=== PATIENT | male | born 1950 | race Caucasian/White ===

== ENCOUNTER → 2021-06-23 10:13 | Outpatient (CLI) | payer MEDICARE, OTHER, SELFPAY ==
--- NOTE | 2021-06-23 10:29 | MRI_ITS ---
STUDY: MRI BRAIN WITH AND WITHOUT CONTRAST (ATTENTION INTERNAL AUDITORY CANALS - I.A.C.''s) REASON FOR EXAM: Male, 70 years old. DIZZINESS, FRONTAL HEADACHES TECHNIQUE: Standardized multiplanar fat and water weighted pulse sequences were obtained. IV 19cc dotarem was administered for the contrast portion of the examination. COMPARISON: None. FINDINGS: Normal bilateral temporal bones. Normal bilateral internal auditory canals. There is no demonstrated intracanalicular or cisternal vestibular schwannoma (acoustic neuroma). There is no enhancement of the bilateral VIIth or VIIIth cranial nerves. Normal bilateral cochlea, vestibules and semicircular canals. Normal size of the ventricles and extra-axial spaces for the patient''s age. Normal white matter tracts of the supratentorial brain. There is no evidence for recent intracranial ischemia or other cause of cytotoxic edema on diffusion weighted imaging (DWI). Normal bilateral basal ganglia. Normal thalami. Normal flow voids within the major intracranial circulation suggesting patency by spin echo criteria. Normal venous enhancement. There is no enhancing intra-axial or extra-axial abnormality. There is no extra-axial fluid accumulation. There is enlargement of the pituitary gland measuring 10 mm with some extension into the suprasellar cistern but no effacement of the optic chiasm. The gland demonstrates homogeneous contrast enhancement without obvious nonenhancing adenoma. Normal tectal plate and pineal gland. Normal midbrain, narda and medulla. Normal cerebellum. Normal basal cisterns. No demonstrated orbital abnormality, within the constraints of a routine brain study. Normal visualized paranasal sinuses. Normal calvarium and skull base. Normal visualized soft tissue structures. Normal visualized upper cervical spine. MRI/Brain W/WO Contrast IMPRESSION: 1. No MR evidence of vestibular schwannoma (acoustic neuroma). 2. Enlarged pituitary gland. Electronically Signed: Barry Cardoso MD at 14:39 EST Tel , Service support ,
[2021-06-23 10:50] LABS: CREATININE FINGERSTICK 0.8 mg/dL (0.70-1.30); EGFR FINGERSTICK > 60.0000 mL/min (>60)
== END ==
PROVIDERS: PCP Family Medicine; Visit Provider Otolaryngology
DX: R42 Dizziness and giddiness (principal); H91.90 Unspecified hearing loss, unspecified ear
CPT/HCPCS: 70553; A9575

== ENCOUNTER 2021-09-29 13:14 | Outpatient (CLI) | payer MEDICARE, OTHER, SELFPAY ==
[2021-09-29 14:53] LABS: Absolute Lymphocyte Count 0.88 X10^3/uL (0.83-4.51); Absolute Neutrophil Count 8.7 X10^3/uL (2.0-7.7); Basophil# 0.07 X10^3/uL; Basophil% 0.7 % (0-1); Eosinophil# 0.07 X10^3/uL; Eosinophils% 0.7 % (0-5); Hematocrit 48.3 % (40-54); Hemoglobin 16.3 g/dL (13.0-16.5); Lymphocyte # 0.88 X10^3/ul (0.83-4.51); Lymphocyte % 8.5 % (19-41); Mean Corp Hgb Conc 33.7 g/dL (32-36); Mean Corpuscular Hgb 31.2 pg (27.0-32.0); Mean Corpuscular Volume 92.5 fL (80-94); Mean Platelet Vol. 9.3 fl (6.2-12.0); Monocyte# 0.67 X10^3/uL; Monocyte% 6.4 % (0-10); NRBC Flagged by Analyzer 0 % (0-5); Neutrophil # 8.66 X10^3/uL (2.7-7.7); Neutrophil % 83.2 % (47-70); Platelet Count 254 K/mm3 (150-450); RBC Distribution Width CV 13.2 % (11.6-14.6); RBC Distribution Width SD 44.5 fl (35.1-43.9); Red Blood Count 5.22 M/mm3 (4.6-6.2); White Blood Count 10.4 K/mm3 (4.4-11.0)
[2021-09-29 15:53] LABS: ALB/GLOB Ratio 1.1 RATIO (0.9-2.4); AST(SGOT) 19 U/L (15-37); Alanine Aminotransfer ALT/SGPT 40 U/L (16-61); Albumin, Serum 4.1 g/dL (3.2-5.0); Alkaline Phosphatase 90 U/L (45-117); Anion Gap 6 (5-15); BUN 15 mg/dL (7-18); BUN/Creat Ratio 19.6 RATIO (10-20); Chloride 105 mmol/L (98-107); Creatinine, Serum 0.76 mg/dL (0.70-1.30); EST Glomerular Filtration Rate 107 mL/min (>60); Est Glom Filt Rate - Afr Amer 129 mL/min (>60); Globulin 3.6 g/dL (2.2-4.2); Glucose 91 mg/dL (74-106); PSA,Total - Annual Screen 1.88 ng/mL (0.00-4.00); Potassium 3.8 mmol/L (3.5-5.1); Protein, Total 7.7 g/dL (6.4-8.2); Sodium Level 137 mmol/L (136-145); Thyroid Stim Hormone (TSH) 5.23 uIU/mL (0.358-3.74)
[2021-09-30 11:54] LABS: Hepatitis C Antibody Non-Reactive (Nonreactive)
== END 2021-09-29 23:59 | disposition home or self-care (01) ==
LOC: LAB 13:18
PROVIDERS: PCP Family Medicine Geriatric Medicine; Referring Provider Family Medicine Geriatric Medicine; Visit Provider Family Medicine Geriatric Medicine
DX: R53.83 Other fatigue (principal); Z12.5 Encounter for screening for malignant neoplasm of prostate; Z13.89 Encounter for screening for other disorder
CPT/HCPCS: 36415; 80053; 84153; 84443; 85025; 86803; G0103

== ENCOUNTER → 2022-05-02 | Outpatient (CLI) | payer MEDICARE, OTHER, SELFPAY ==
--- NOTE | 2022-05-02 09:45 | ART_ITS ---
Reason For Study: Claudication Procedure A bilateral lower extremity continuous wave Doppler with analog waveform analysis and ankle brachial indexes. Left Segmental Pressures Left brachial= 157mmHg. Left posterior tibial artery = 176mmHg. Left dorsalis pedis artery = 187mmHg. Left digit = 101 mmHg. Right Segmental Pressures Right brachial= 144mmHg. Right posterior tibial artery = 188mmHg. Right dorsalis pedis artery = 175mmHg. Right digit = 109 mmHg. Indices The right ankle brachial index by the posterior tibial artery is 1.20. The right ankle brachial index by the dorsalis pedis is 1.11. The right digital-brachial index is 0.69. The left ankle brachial index by the posterior tibial artery is 1.12. The left ankle brachial index by the dorsalis pedis is 1.19. The left digital-brachial index is 0.64. VL/Ankle Brachial Index Interpretation Summary Triphasic Doppler waveforms are noted at ankle level bilaterally. Pulse-volume recordings appear diminished at digital level bilaterally. Resting ankle-brachial indices are nor mal bilaterally. Digital-brachial indices are mildly diminished bilaterally. Arterial flow appears normal at ankle level bilaterally. There is evidence of m ild arterial occlusive disease at digital level bilaterally. Ordering Physician: Damián Wei Chi Referring Physician: DAMIÁN WEI CHI, MD Performed By: Laurie Vasquez RDCS/RVT
== END | disposition home or self-care (01) ==
LOC: CVS 09:44
PROVIDERS: PCP Family Medicine Geriatric Medicine; Referring Provider Family Medicine Geriatric Medicine; Visit Provider Family Medicine Geriatric Medicine
DX: I73.9 Peripheral vascular disease, unspecified (principal)
CPT/HCPCS: 93922

== ENCOUNTER → 2022-06-02 | Outpatient (CLI) | payer MEDICARE, OTHER, SELFPAY ==
[2022-06-02 17:59] LABS: Absolute Lymphocyte Count 1.01 X10^3/uL (0.83-4.51); Absolute Neutrophil Count 5.6 X10^3/uL (2.0-7.7); Basophil# 0.07 X10^3/uL; Basophil% 0.9 % (0-1); Eosinophils% 1.4 % (0-5); Hematocrit 45.3 % (40-54); Hemoglobin 15.1 g/dL (13.0-16.5); Lymphocyte # 1.01 X10^3/ul (0.83-4.51); Lymphocyte % 13.6 % (19-41); Mean Corp Hgb Conc 33.3 g/dL (32-36); Mean Corpuscular Hgb 30.3 pg (27.0-32.0); Mean Corpuscular Volume 90.8 fL (80-94); Mean Platelet Vol. 9.6 fl (6.2-12.0); Monocyte# 0.63 X10^3/uL; Monocyte% 8.5 % (0-10); NRBC Flagged by Analyzer 0 % (0-5); Neutrophil # 5.56 X10^3/uL (2.7-7.7); Neutrophil % 75.2 % (47-70); Platelet Count 269 K/mm3 (150-450); RBC Distribution Width CV 12.9 % (11.6-14.6); RBC Distribution Width SD 42.1 fl (35.1-43.9); Red Blood Count 4.99 M/mm3 (4.6-6.2); White Blood Count 7.4 K/mm3 (4.4-11.0)
[2022-06-02 18:37] LABS: ALB/GLOB Ratio 1.1 RATIO (0.9-2.4); AST(SGOT) 18 U/L (15-37); Alanine Aminotransfer ALT/SGPT 36 U/L (16-61); Alkaline Phosphatase 127 U/L (45-117); Anion Gap 7 (5-15); BUN 18 mg/dL (7-18); BUN/Creat Ratio 21.8 RATIO (10-20); Calcium,Total 8.7 mg/dL (8.5-10.1); Chloride 103 mmol/L (98-107); Creatinine, Serum 0.82 mg/dL (0.70-1.30); EST Glomerular Filtration Rate 98 mL/min (>60); Est Glom Filt Rate - Afr Amer 119 mL/min (>60); Globulin 3.5 g/dL (2.2-4.2); Glucose 68 mg/dL (74-106); Potassium 3.7 mmol/L (3.5-5.1); Protein, Total 7.5 g/dL (6.4-8.2); Sodium Level 136 mmol/L (136-145); Thyroid Stim Hormone (TSH) 1.79 uIU/mL (0.358-3.74)
[2022-06-02 18:38] LABS: Vitamin D,25 Hydroxy 29.4 ng/mL
== END | disposition home or self-care (01) ==
LOC: POLAB3 09:22
PROVIDERS: PCP Family Medicine Geriatric Medicine; Visit Provider Family Medicine Geriatric Medicine
DX: I10 Essential (primary) hypertension (principal); E55.9 Vitamin D deficiency, unspecified
CPT/HCPCS: 36415; 80053; 82306; 84443; 85025

== ENCOUNTER → 2022-10-04 | Outpatient (CLI) | payer MEDICARE, OTHER, SELFPAY ==
[2022-10-04 17:29] LABS: Absolute Lymphocyte Count 1.29 X10^3/uL (0.83-4.51); Absolute Neutrophil Count 6.7 X10^3/uL (2.0-7.7); Basophil# 0.07 X10^3/uL; Basophil% 0.8 % (0-1); Eosinophil# 0.17 X10^3/uL; Eosinophils% 1.9 % (0-5); Hematocrit 43.8 % (40-54); Hemoglobin 14.7 g/dL (13.0-16.5); Lymphocyte # 1.29 X10^3/ul (0.83-4.51); Lymphocyte % 14.3 % (19-41); Mean Corp Hgb Conc 33.6 g/dL (32-36); Mean Corpuscular Hgb 29.6 pg (27.0-32.0); Mean Corpuscular Volume 88.3 fL (80-94); Mean Platelet Vol. 10.1 fl (6.2-12.0); Monocyte# 0.71 X10^3/uL; Monocyte% 7.9 % (0-10); NRBC Flagged by Analyzer 0 % (0-5); Neutrophil # 6.74 X10^3/uL (2.7-7.7); Neutrophil % 74.5 % (47-70); Platelet Count 233 K/mm3 (150-450); RBC Distribution Width CV 13.4 % (11.6-14.6); RBC Distribution Width SD 43.1 fl (35.1-43.9); Red Blood Count 4.96 M/mm3 (4.6-6.2)
[2022-10-04 17:49] LABS: Vitamin D,25 Hydroxy 17.6 ng/mL
[2022-10-04 18:02] LABS: ALB/GLOB Ratio 1.1 RATIO (0.9-2.4); AST(SGOT) 18 U/L (15-37); Alanine Aminotransfer ALT/SGPT 37 U/L (16-61); Albumin, Serum 3.8 g/dL (3.2-5.0); Alkaline Phosphatase 137 U/L (45-117); Anion Gap 6 (5-15); BUN 16 mg/dL (7-18); BUN/Creat Ratio 17.4 RATIO (10-20); Calcium,Total 8.7 mg/dL (8.5-10.1); Chloride 101 mmol/L (98-107); Creatinine, Serum 0.92 mg/dL (0.70-1.30); EST Glomerular Filtration Rate 86 mL/min (>60); Est Glom Filt Rate - Afr Amer 104 mL/min (>60); Globulin 3.5 g/dL (2.2-4.2); Glucose 99 mg/dL (74-106); Potassium 3.7 mmol/L (3.5-5.1); Protein, Total 7.3 g/dL (6.4-8.2); Sodium Level 136 mmol/L (136-145); Thyroid Stim Hormone (TSH) 1.95 uIU/mL (0.358-3.74)
== END | disposition home or self-care (01) ==
LOC: POLAB3 15:16
PROVIDERS: PCP Family Medicine Geriatric Medicine; Visit Provider Family Medicine Geriatric Medicine
DX: E55.9 Vitamin D deficiency, unspecified (principal); I10 Essential (primary) hypertension
CPT/HCPCS: 36415; 80053; 82306; 84443; 85025

== ENCOUNTER → 2023-03-29 | Outpatient (CLI) | payer MEDICARE, OTHER, SELFPAY ==
[2023-03-29 15:29] LABS: Absolute Lymphocyte Count 1.21 X10^3/uL (0.83-4.51); Absolute Neutrophil Count 5.8 X10^3/uL (2.0-7.7); Basophil# 0.07 X10^3/uL; Basophil% 0.9 % (0-1); Eosinophil# 0.16 X10^3/uL; Hematocrit 45.3 % (40-54); Hemoglobin 14.9 g/dL (13.0-16.5); Lymphocyte # 1.21 X10^3/ul (0.83-4.51); Lymphocyte % 15.3 % (19-41); Mean Corp Hgb Conc 32.9 g/dL (32-36); Mean Corpuscular Hgb 29.2 pg (27.0-32.0); Mean Corpuscular Volume 88.6 fL (80-94); Mean Platelet Vol. 9.3 fl (6.2-12.0); Monocyte# 0.63 X10^3/uL; Monocyte% 7.9 % (0-10); NRBC Flagged by Analyzer 0 % (0-5); Neutrophil # 5.81 X10^3/uL (2.7-7.7); Neutrophil % 73.3 % (47-70); Platelet Count 267 K/mm3 (150-450); RBC Distribution Width CV 13.4 % (11.6-14.6); RBC Distribution Width SD 43.7 fl (35.1-43.9); Red Blood Count 5.11 M/mm3 (4.6-6.2); White Blood Count 7.9 K/mm3 (4.4-11.0)
[2023-03-29 15:51] LABS: Vitamin D,25 Hydroxy 30.5 ng/mL
[2023-03-29 15:57] LABS: ALB/GLOB Ratio 1.1 RATIO (0.9-2.4); AST(SGOT) 15 U/L (15-37); Alanine Aminotransfer ALT/SGPT 27 U/L (16-61); Alkaline Phosphatase 139 U/L (45-117); Anion Gap 8 (5-15); BUN 18 mg/dL (7-18); BUN/Creat Ratio 20.8 RATIO (10-20); Calcium,Total 8.9 mg/dL (8.5-10.1); Chloride 104 mmol/L (98-107); Creatinine, Serum 0.87 mg/dL (0.70-1.30); EST Glomerular Filtration Rate 92 mL/min (>60); Est Glom Filt Rate - Afr Amer 112 mL/min (>60); Globulin 3.6 g/dL (2.2-4.2); Glucose 97 mg/dL (74-106); Protein, Total 7.6 g/dL (6.4-8.2); Sodium Level 137 mmol/L (136-145); Thyroid Stim Hormone (TSH) 1.57 uIU/mL (0.358-3.74)
== END | disposition home or self-care (01) ==
LOC: POLAB3 09:41
PROVIDERS: PCP Family Medicine Geriatric Medicine; Visit Provider Family Medicine Geriatric Medicine
DX: I10 Essential (primary) hypertension (principal); E55.9 Vitamin D deficiency, unspecified
CPT/HCPCS: 36415; 80053; 82306; 84443; 85025

== ENCOUNTER → 2023-10-11 | Outpatient (CLI) | payer MEDICARE, OTHER, SELFPAY ==
[2023-10-11 11:25] LABS: Absolute Lymphocyte Count 0.77 X10^3/uL (0.83-4.51); Absolute Neutrophil Count 4.4 X10^3/uL (2.0-7.7); Basophil# 0.06 X10^3/uL; Eosinophil# 0.15 X10^3/uL; Eosinophils% 2.6 % (0-5); Hematocrit 45.1 % (40-54); Hemoglobin 14.3 g/dL (13.0-16.5); Lymphocyte # 0.77 X10^3/ul (0.83-4.51); Lymphocyte % 13.3 % (19-41); Mean Corp Hgb Conc 31.7 g/dL (32-36); Mean Corpuscular Hgb 27.8 pg (27.0-32.0); Mean Corpuscular Volume 87.7 fL (80-94); Mean Platelet Vol. 9.7 fl (6.2-12.0); Monocyte% 6.9 % (0-10); NRBC Flagged by Analyzer 0 % (0-5); Neutrophil # 4.38 X10^3/uL (2.7-7.7); Neutrophil % 75.5 % (47-70); Platelet Count 246 K/mm3 (150-450); RBC Distribution Width CV 13.7 % (11.6-14.6); RBC Distribution Width SD 44.1 fl (35.1-43.9); Red Blood Count 5.14 M/mm3 (4.6-6.2); White Blood Count 5.8 K/mm3 (4.4-11.0)
[2023-10-11 12:03] LABS: Vitamin D,25 Hydroxy 20.7 ng/mL
[2023-10-11 12:09] LABS: AST(SGOT) 15 U/L (15-37); Alanine Aminotransfer ALT/SGPT 34 U/L (16-61); Albumin, Serum 3.7 g/dL (3.2-5.0); Alkaline Phosphatase 137 U/L (45-117); Anion Gap 4 (5-15); BUN 17 mg/dL (7-18); BUN/Creat Ratio 17.7 RATIO (10-20); Calcium,Total 8.7 mg/dL (8.5-10.1); Chloride 108 mmol/L (98-107); Creatinine, Serum 0.96 mg/dL (0.70-1.30); EST Glomerular Filtration Rate 82 mL/min (>60); Est Glom Filt Rate - Afr Amer 99 mL/min (>60); Globulin 3.8 g/dL (2.2-4.2); Glucose 107 mg/dL (74-106); Potassium 4.6 mmol/L (3.5-5.1); Protein, Total 7.5 g/dL (6.4-8.2); Sodium Level 140 mmol/L (136-145); Thyroid Stim Hormone (TSH) 1.51 uIU/mL (0.358-3.74)
== END | disposition home or self-care (01) ==
LOC: POLAB3 09:46
PROVIDERS: PCP Family Medicine Geriatric Medicine; Visit Provider Family Medicine Geriatric Medicine
DX: I10 Essential (primary) hypertension (principal); E55.9 Vitamin D deficiency, unspecified
CPT/HCPCS: 36415; 80053; 82306; 84443; 85025

== ENCOUNTER → 2024-04-24 | Outpatient (CLI) | payer MEDICARE, OTHER, SELFPAY ==
[2024-04-24 09:40] LABS: Absolute Lymphocyte Count 1.02 X10^3/uL (0.83-4.51); Absolute Neutrophil Count 4.8 X10^3/uL (2.0-7.7); Basophil# 0.09 X10^3/uL; Basophil% 1.3 % (0-1); Hematocrit 44.8 % (40-54); Hemoglobin 14.3 g/dL (13.0-16.5); Lymphocyte # 1.02 X10^3/ul (0.83-4.51); Lymphocyte % 15.2 % (19-41); Mean Corp Hgb Conc 31.9 g/dL (32-36); Mean Corpuscular Hgb 28.6 pg (27.0-32.0); Mean Corpuscular Volume 89.6 fL (80-94); Monocyte# 0.56 X10^3/uL; Monocyte% 8.4 % (0-10); NRBC Flagged by Analyzer 0 % (0-5); Neutrophil # 4.79 X10^3/uL (2.7-7.7); Neutrophil % 71.5 % (47-70); Platelet Count 219 K/mm3 (150-450); RBC Distribution Width CV 14.1 % (11.6-14.6); White Blood Count 6.7 K/mm3 (4.4-11.0)
[2024-04-24 10:14] LABS: Vitamin D,25 Hydroxy 30.3 ng/mL
[2024-04-24 10:16] LABS: ALB/GLOB Ratio 1.1 RATIO (0.9-2.4); AST(SGOT) 22 U/L (15-37); Alanine Aminotransfer ALT/SGPT 42 U/L (16-61); Albumin, Serum 3.7 g/dL (3.2-5.0); Alkaline Phosphatase 137 U/L (45-117); Anion Gap 9 (5-15); BUN 17 mg/dL (7-18); BUN/Creat Ratio 19.5 RATIO (10-20); Calcium,Total 9.1 mg/dL (8.5-10.1); Chloride 106 mmol/L (98-107); Creatinine, Serum 0.87 mg/dL (0.70-1.30); EST Glomerular Filtration Rate 92 mL/min (>60); Est Glom Filt Rate - Afr Amer 111 mL/min (>60); Globulin 3.5 g/dL (2.2-4.2); Glucose 126 mg/dL (74-106); Potassium 4.4 mmol/L (3.5-5.1); Protein, Total 7.2 g/dL (6.4-8.2); Sodium Level 139 mmol/L (136-145)
[2024-04-24 13:02] LABS: Hemoglobin A1c 5.9 % (3.8-5.6)
== END | disposition home or self-care (01) ==
LOC: POLAB3 09:15
PROVIDERS: PCP Family Medicine Geriatric Medicine; Visit Provider Family Medicine Geriatric Medicine
DX: R73.9 Hyperglycemia, unspecified (principal); I10 Essential (primary) hypertension; E55.9 Vitamin D deficiency, unspecified
CPT/HCPCS: 36415; 80053; 82306; 83036; 84443; 85025

== ENCOUNTER 2024-11-11 09:36 | Outpatient (CLI) | payer MEDICARE, OTHER, SELFPAY ==
[2024-11-11 10:37] LABS: Absolute Lymphocyte Count 0.95 X10^3/uL (0.83-4.51); Absolute Neutrophil Count 5.9 X10^3/uL (2.0-7.7); Basophil# 0.09 X10^3/uL; Basophil% 1.2 % (0-1); Eosinophil# 0.15 X10^3/uL; Eosinophils% 1.9 % (0-5); Hematocrit 46.1 % (40-54); Hemoglobin 15.1 g/dL (13.0-16.5); Lymphocyte # 0.95 X10^3/ul (0.83-4.51); Lymphocyte % 12.3 % (19-41); Mean Corp Hgb Conc 32.8 g/dL (32-36); Mean Corpuscular Hgb 28.8 pg (27.0-32.0); Mean Corpuscular Volume 87.8 fL (80-94); Mean Platelet Vol. 9.9 fl (6.2-12.0); Monocyte# 0.56 X10^3/uL; Monocyte% 7.3 % (0-10); NRBC Flagged by Analyzer 0 % (0-5); Neutrophil # 5.93 X10^3/uL (2.7-7.7); Neutrophil % 76.9 % (47-70); Platelet Count 230 K/mm3 (150-450); RBC Distribution Width CV 13.6 % (11.6-14.6); RBC Distribution Width SD 43.7 fl (35.1-43.9); Red Blood Count 5.25 M/mm3 (4.6-6.2); White Blood Count 7.7 K/mm3 (4.4-11.0)
[2024-11-11 11:25] LABS: ALB/GLOB Ratio 1.5 RATIO (0.9-2.4); AST(SGOT) 22 U/L (<=37); Alanine Aminotransfer ALT/SGPT 30 U/L (<=46); Albumin, Serum 4.3 g/dL (3.4-4.8); Alkaline Phosphatase 154 U/L (40-129); Anion Gap 12 (5-15); BUN 15 mg/dL (4-19); BUN/Creat Ratio 16.4 RATIO (10-20); Calcium,Total 9.2 mg/dL (7.6-11.0); Carbon Dioxide 23.7 mmol/L (21.0-32.0); Chloride 103 mmol/L (98-108); Creatinine, Serum 0.93 mg/dL (0.70-1.20); EST Glomerular Filtration Rate 86 (>60); Globulin 2.9 g/dL (2.2-4.2); Glucose 109 mg/dL (70-99); Potassium 4.3 mmol/L (3.3-5.1); Protein, Total 7.2 g/dL (5.9-8.4); Sodium Level 139 mmol/L (133-145); Total Bilirubin 0.65 mg/dL (0.00-1.30); Vitamin D,25 Hydroxy 18.9 ng/mL (30-100)
== END 2024-11-11 23:59 | disposition home or self-care (01) ==
PROVIDERS: PCP Family Medicine Geriatric Medicine; Referring Provider Family Medicine Geriatric Medicine; Visit Provider Family Medicine Geriatric Medicine
DX: I10 Essential (primary) hypertension (principal); E55.9 Vitamin D deficiency, unspecified
CPT/HCPCS: 36415; 80053; 82306; 84443; 85025

== ENCOUNTER 2025-06-04 08:52 | Outpatient (CLI) | payer MEDICARE, OTHER, SELFPAY ==
[2025-06-04 09:08] LABS: Hematocrit 45.3 % (40-54); Hemoglobin 14.6 g/dL (13.0-16.5); Immature Granulocytes Count 0.040 X10^3/uL (0.0-0.0); Mean Corp Hgb Conc 32.2 g/dL (32-36); Mean Corpuscular Volume 89.3 fL (80-94); Mean Platelet Vol. 9.5 fl (6.2-12.0); NRBC Flagged by Analyzer 0 % (0-5); Platelet Count 224 K/mm3 (150-450); RBC Distribution Width CV 13.4 % (11.6-14.6); RBC Distribution Width SD 43.7 fl (35.1-43.9); Red Blood Count 5.07 M/mm3 (4.6-6.2); White Blood Count 6.0 K/mm3 (4.4-11.0)
[2025-06-04 09:53] LABS: AST(SGOT) 27 U/L (<=37); Alanine Aminotransfer ALT/SGPT 32 U/L (<=46); Albumin, Serum 4.3 g/dL (3.4-4.8); Alkaline Phosphatase 140 U/L (40-129); Anion Gap 10 (5-15); BUN 20 mg/dL (4-19); BUN/Creat Ratio 20.7 RATIO (10-20); Calcium,Total 9.3 mg/dL (7.6-11.0); Carbon Dioxide 25.6 mmol/L (21.0-32.0); Chloride 103 mmol/L (98-108); Cholesterol 117 mg/dL (<=200); Globulin 2.9 g/dL (2.2-4.2); Glucose 123 mg/dL (70-99); Low Density Lipoprotein Calc. 65 mg/dL; Potassium 4.5 mmol/L (3.3-5.1); Triglycerides 138 mg/dL; Very Low Density Lipoprotein 28 mg/dL (5-40); Vitamin D,25 Hydroxy 21.3 ng/mL (30-100); cholesterol:hdl ratio screen 4.22
[2025-06-04 16:54] LABS: Xtra Tube Kwok EXTRA TUBE
== END 2025-06-04 23:59 | disposition home or self-care (01) ==
LOC: POLAB3 08:54
PROVIDERS: PCP Family Medicine Geriatric Medicine; Visit Provider Family Medicine Geriatric Medicine
DX: I10 Essential (primary) hypertension (principal); E03.9 Hypothyroidism, unspecified; E55.9 Vitamin D deficiency, unspecified; E78.5 Hyperlipidemia, unspecified
CPT/HCPCS: 36415; 80053; 80061; 82306; 84443; 85025